=== PATIENT | male | born 2000 | race Caucasian/White ===

== ENCOUNTER 2024-03-12 00:11 | Emergency (ER) | payer BC ==
[~2024-03-12] VITALS: Ht 190.5 cm; Wt 85.1 kg
[2024-03-12 00:22] VITALS: BP 135/78; PULSE 116; RESP 16; TEMP 98; O2SAT 98
== END 2024-03-12 02:13 | disposition home or self-care (01) ==
LOC: ER 00:11
DX: S63.501A Unspecified sprain of right wrist, initial encounter (principal); W18.39XA Other fall on same level, initial encounter; Y93.89 Activity, other specified; Y92.89 Other specified places as the place of occurrence of the external cause; Y99.8 Other external cause status
CPT/HCPCS: 73090; 99283